=== PATIENT | male | born 1985 ===

== ENCOUNTER → 2017-12-21 03:06 | Emergency (ER) | payer SELFPAY ==
[~2017-12-21 03:06] MED LIST: Morphine INJ* 10 MG/ML 1 ML CARPUJECT IV ONE; Morphine VIAL* 4 MG/ML VIAL (1 ml vial) IV PRN; Morphine VIAL* 4 MG/ML VIAL (1 ml vial) IV STA; NS 0.9% 1000 ML* 1,000 ML IV ONE; Ondansetron INJ* 2 MG/ML VIAL IV ONE; diPHENhydraMINE PO* 50 MG ONE; diPHENhydraMINE PO* 50 MG PO ONE
--- NOTE | 2017-12-21 03:13 | ED ---
Back Pain - HPI Summary HPI Summary: Pt is a 32 y/o M c/o constant lower back pain onset four days ago and is still present. Associated Sx: dysuria, epigastric pain, chills onset five days ago. Denies numbness. Noted he had to "sit and push" - really hard to pee. Pt woke up at 0000 this date with worsened back pain and inability to urinate. He presented to [facility] where he was found to be in acute urinary retention; aranda was passed and drained 1000 ml of clear urine. He has not had any sensory symptoms in the perineum or lower extremities and has not had any lower extremity weakness. Denies FHx. PMHx: NIDDM, HTN. Pt transferred from [place] to [facility]. - History of Current Complaint Stated Complaint: LOWER BACK/ABD PAIN/TROUBLE URINATING Hx Obtained From: Patient Onset/Duration: Sudden Onset, Lasting Days, Worse Since - waking at midnight Onset/Duration: Started Hours Ago - worsened Sx: 0000 this date, Started Days Ago - Original onset 12/17 Timing: Constant, Lasting Days Back Pain Location: Is Discrete @ - lower back Severity Initially: Severe - worse than 6/10 Severity Currently: Moderate Pain Intensity: 6 - per triage Pain Scale Used: 0-10 Numeric Associated Signs And Symptoms: Positive: Other - Dysuria, urinary retention. Negative: Fever, Numbness - Allergies/Home Medications Allergies/Adverse Reactions: Allergies Allergy/AdvReac Type Severity Reaction Status Date / Time hydrocodone [From Vicodin] Allergy Vomiting Verified 12/21/17 03:17 metformin Allergy Swelling Verified 12/21/17 03:17 oxycodone [From Percocet] Allergy Vomiting Verified 12/21/17 03:17 Home Medications: Home Medications glipiZIDE [Glipizide] 5 mg PO BID 12/21/17 [History Confirmed 12/21/17] PMH/Surg Hx/FS Hx/Imm Hx Previously Healthy: No Endocrine/Hematology History: Reports: Hx Diabetes Cardiovascular History: Reports: Hx Hypertension Denies: Hx Coronary Artery Disease - Family History Known Family History: Negative: Cardiac Disease, Hypertension, Diabetes - Social History Occupation: Unemployed Lives: With Family Substance Use Type: Reports: None Review of Systems Positive: Chills - five days ago. Negative: Fever Positive: Abdominal Pain - epigastric Positive: dysuria, other - urinary retention Musculoskeletal: Other - lower back pain Negative: Numbness All Other Systems Reviewed And Are Negative: Yes Physical Exam - Summary Physical Exam Summary: Appearance: Well-appearing, Well-nourished, lying in bed comfortably Skin: Warm, dry, no obvious rash Eyes: sclera anicteric, no conjunctival pallor ENT: mucous membranes moist, pharynx appears normal Neck: Supple, nontender Respiratory: Clear to auscultation, no signs of respiratory distress Cardiovascular: Normal S1, S2. No murmurs. Normal distal pulses in tibial and radial bilaterally. Abdomen: Soft, nontender, normal active bowel sounds present Rectal: nml rectal tone Musculoskeletal: Normal, Strength/ROM Intact Neurological: A&Ox3, awake and alert, mentation is normal, speech is fluent and appropriate, no saddle anesthesia Psychiatric: affect is normal, does not appear anxious or depressed Triage Information Reviewed: Yes Vital Signs Reviewed: Yes Diagnostics - Laboratory Result Diagrams: 12/21/17 04:03 12/21/17 04:03 Lab Statement: Any lab studies that have been ordered have been reviewed, and results considered in the medical decision making process. Back Pain Course/Dx - Diagnoses Differential Diagnosis/HQI/PQRI: Positive: Cauda Equina Syndrome, Compressive Cord Syndrome, Epidural Abscess - Provider Notifications Discussed Care Of Patient With: Lukasz Myles Time Discussed With Above Provider: 03:37 Instructed by Provider To: Other - Discussed further care of pt w provider. Discharge - Sign-Out/Discharge Documenting (check all that apply): Sign-Out Patient Signing out patient TO: Lorenzo Olsen - pending imaging - Discharge Plan Referrals: Nito Cunningham DO [Primary Care Provider] -
[2017-12-21 04:24] LABS: ABS Basophils 0.1 10^3/ul (0-0.2); ABS Eosinophils 0.2 10^3/ul (0-0.6); ABS Lymphocytes 1.9 10^3/ul (1.0-4.8); ABS Monocytes 0.4 10^3/ul (0-0.8); ABS Neutrophils 3.2 10^3/ul (1.5-7.7); ABS Nucleated RBC 0 10^3/ul; Eosinophil % 3.2 % (0-6); Hematocrit 42 % (42-52); Hemoglobin 14.9 g/dl (14.0-18.0); Lymphocyte % 32.6 % (25-47); Mean Corpuscular HGB Conc 36 g/dl (31-36); Mean Corpuscular Hemoglobin 32 pg (27-31); Mean Corpuscular Volume 89 fL (80-94); Mean Platelet Volume 8.6 um3 (7.4-10.4); Nucleated Red Blood Cells % 0.1; Platelet Count 161 10^3/ul (150-450); Red Blood Count 4.74 10^6/ul (4.00-5.40); Red Cell Distribution Width 13 % (10.5-15); White Blood Count 5.7 10^3/ul (3.5-10.8)
[2017-12-21 04:29] LABS: EGFR Non-African American 87.6 (>60)
[2017-12-21 04:58] LABS: Urine Appearance Clear; Urine Blood 2+ (Negative); Urine Color Straw; Urine Ketones Negative (Negative); Urine Protein Negative (Negative); Urine Red Blood Cell 3+(>10/hpf) (Absent); Urine Specific Gravity 1.017 (1.010-1.030); Urine Urobilinogen Negative (Negative); Urine White Blood Cell 1+(6-10/hpf) (Absent)
--- NOTE | 2017-12-21 08:11 | ED ---
Progress - Progress Note Progress Note: Pt was received from Dr. Paige awaiting MRI and disposition. MRI revealed as per radiologist: 1. Mild degenerative disc disease at L4/L5 does not appear to cause any significant central canal or neural foraminal stenosis. 2. Degenerative changes involving the lower thoracic spine as described in body the report ER Physician reviewed this report Re-Evaluation - Re-Evaluation First Eval Re-Evaluation Time: 09:45 Comment: Pt is able to stand and move about freely. Pt has full strength. Pt has nausea from the morphine. Pt has pain in the sacrum and at the top of the gluteal cleft. Course/Dx - Course Course Of Treatment: Patient presents with urinary retention with a [place] catheter in place. He had MRI ordered to rule out cauda equina syndrome. Patient has no weakness or loss of patient in the legs. He's had constipation associated with it. He was able to have a bowel movement here. His MRI was negative of the lumbar spine. He was treated with antibiotics for the abscess area and his thoracic back, [place] catheter will be left in and his back pain will be treated symptomatically. He is discharged to follow closely his primary care physician. - Diagnoses Provider Diagnoses: Acute retention of urine, Abscess of skin, Sacral back pain, Acute constipation - Critical Care Time Critical Care Time: 30-74 min - Critical care time is exclusive of separately billable procedures Discharge - Sign-Out/Discharge Documenting (check all that apply): Patient Departure - discharge, Receiving Sign-Out Receiving patient FROM: Oswaldo Paige - Discharge Plan Condition: Improved Disposition: HOME Prescriptions: Clindamycin Cap(NF) [Clindamycin Cap 300 mg Cap(NF)] 300 mg PO Q6H #28 cap Cyclobenzaprine TAB* [Flexeril 10 MG TAB*] 10 mg PO TID PRN #15 tab PRN Reason: muscle pain/spasm Naproxen [Naproxen 500 mg tab] 500 mg PO BID PRN #10 tablet. PRN Reason: Pain Polyethylene Glycol 3350 BTL* [Miralax] 17 gm PO TID PRN #1 btl PRN Reason: Constipation Patient Education Materials: Constipation (ED), Urinary Retention in Men (ED), Abscess (ED), Back Pain (ED) Forms: *Work Release Referrals: Jamie Forrest, [Doctor of Osteopathy] - Additional Instructions: Call your doctor first thing morning to schedule follow-up. The catheter may have to remain in place for the next several days. Return with fever, numbness or weakness in her legs, worse, new symptoms or other concerns. Use the MiraLAX until you have loose stools. Avoid Benadryl. - Billing Disposition and Condition Condition: IMPROVED Disposition: Home
--- NOTE | 2017-12-21 08:34 | RAD ---
HISTORY: MRI clearance. COMPARISON: None. FINDINGS: Frontal and lateral views of the orbits. There is no radiopaque foreign body attributable to the orbits. The orbital rims are intact. The sinuses are clear. The zygomatic arches are normal. IMPRESSION: No radiopaque foreign body attributable to the orbits.
--- NOTE | 2017-12-21 09:38 | RAD ---
INDICATION: Back pain. COMPARISON: None TECHNIQUE: Coronal basketball scout, sagittal T1, inversion recovery, T2, and axial T1, T2 images were acquired. FINDINGS: The spinal cord terminates at the L1 level. There are no intrinsic abnormalities of the visualized cord. The lower thoracic and lumbar vertebrae are normally aligned. There is mild chronic appearing loss of vertebral body height at T10 and T11. At the anterior inferior endplate of T11 there is T2 and T1 bright change of the bone marrow abutting the intact cortex consistent with Modic type II change. The visualized lower thoracic and lumbar intervertebral discs generally maintained appropriate T2 bright fluid signal. There is loss of intervertebral disc height at 10/11 and 11/12 with mild loss of fluid signal anteriorly where there is anterior disc protrusion. Axial view images: Less otherwise specified below there is no significant central canal stenosis or neural foraminal stenosis. T12-L1:There is no significant central canal or neural foraminal stenoses. L1-L2: There is no significant central canal or neural foraminal stenoses. L2-L3: There is no significant central canal or neural foraminal stenoses. L3-L4: There is no significant central canal or neural foraminal stenoses. L4-L5: There is mild broad-based disc protrusion extending into the left neural foramen abutting the thecal sac as well as facet arthropathy. This does not appear to cause any significant central canal or neural foraminal stenosis. Adjacent to the medial margin of the left facet joint there is a T2 bright and T1 hypointense 6 mm focus compatible with a benign cyst. L5-S1: There is no significant central canal or neural foraminal stenoses. IMPRESSION: 1. Mild degenerative disc disease at L4/L5 does not appear to cause any significant central canal or neural foraminal stenosis. 2. Degenerative changes involving the lower thoracic spine as described in body the report.
[2017-12-21 11:31] VITALS: BP 136/81
== END | disposition home or self-care (01) ==
LOC: ED 03:06
DX: R33.9 Retention of urine, unspecified (principal); M54.5 Low back pain; E11.9 Type 2 diabetes mellitus without complications; I10 Essential (primary) hypertension; Z79.84 Long term (current) use of oral hypoglycemic drugs; M51.36 Other intervertebral disc degeneration, lumbar region; M51.34 Other intervertebral disc degeneration, thoracic region; L02.91 Cutaneous abscess, unspecified; K59.00 Constipation, unspecified
CPT/HCPCS: 36415; 70030; 72148; 80053; 80320; 81003; 81015; 85025; 87086; 96361; 96374; 96376; 99283; A9270-GY; G0480; J2270; J2405